=== PATIENT | male | born 1935 | race Caucasian/White ===

== ENCOUNTER 2021-02-25 03:30 | Emergency (ER) | payer MEDICARE ==
--- NOTE | 2021-02-25 04:33 | EDM.PDOCBH ---
ED HPI GENERAL MEDICAL PROBLEM - General Chief Complaint: Behavioral/Psych Stated Complaint: HALLUCINATIONS Time Seen by Provider: 02/25/21 03:40 Source of Information: Reports: Patient, EMS History Limitations: Reports: No Limitations - History of Present Illness INITIAL COMMENTS - FREE TEXT/NARRATIVE: 85-year-old male who called [phone] because he saw people in his yard m essing with his car, and messing with his neighbors boat. Police arrived and nothing was happening, he was hallucinating. He now realizes that it was not happening but it "seems so real". He is very cooperative, stable, has no complaints of headache but is having some visual disturbances like "ants on the floor and lines moving on the wall". He recently restarted taking Wellbutrin for depression and trying to quit smoking, although he claims he will "never quit smoking". He does not feel it is helping the depression, he is not suicidal. His plan is to go to [place] next week. Onset: Unknown/Unsure Duration: Week(s): (He has been having some hallucinations for the past couple of weeks) Lower Back Pain Score (Numeric/FACES): 7 - Related Data Allergies Allergy/AdvReac Type Severity Reaction Status Date / Time codeine Allergy Unknown Rash Verified 02/25/21 03:38 Home Meds: Home Meds Tamsulosin [Tamsulosin 24 Hr] 0.4 mg PO DAILY 10/21/13 [History] Tiotropium [Spiriva HandiHaler] 1 puff IH DAILY 10/21/13 [History] atorvaSTATin [Lipitor] 80 mg PO BEDTIME 10/21/13 [History] Metoprolol Succinate 50 mg PO DAILY 02/25/21 [History] Omeprazole 40 mg PO DAILY 02/25/21 [History] Warfarin Sodium [Jantoven] 5 mg PO DAILY 02/25/21 [History] buPROPion [Wellbutrin] 75 mg PO BEDTIME 02/25/21 [History] Past Medical History Cardiovascular History: Reports: High Cholesterol Respiratory History: Reports: COPD Musculoskeletal History: Reports: Back Pain, Chronic, Fracture Psychiatric History: Reports: Depression, Suicidal Ideation - Infectious Disease History Infectious Disease History: Reports: Chicken Pox - Past Surgical History Musculoskeletal Surgical History: Reports: Arthroscopic Procedure Social & Family History - Tobacco Use Tobacco Use Status *Q: Current Every Day Tobacco User Years of Tobacco use: 47 Packs/Tins Daily: 1 - Caffeine Use Caffeine Use: Reports: Coffee, Energy Drinks, Soda, Tea - Alcohol Use Days Per Week of Alcohol Use: 7 Number of Drinks Per Day: 2 Total Drinks Per Week: 14 - Recreational Drug Use Recreational Drug Use: No ED ROS GENERAL - Review of Systems Review Of Systems: See Below Constitutional: Denies: Fever, Chills HEENT: Denies: Vision Change (No visual changes but is having visual hallucinations) Respiratory: Denies: Shortness of Breath Cardiovascular: Denies: Chest Pain GI/Abdominal: Denies: Abdominal Pain, Nausea, Vomiting Musculoskeletal: Reports: Back Pain (Being treated for compression fracture in his back) Skin: Reports: No Symptoms Neurological: Reports: Paresthesia (Occasional stinging sensation and paresthesias down the left leg, none currently) Psychiatric: Reports: Confusion, Hallucinations, Mood Lability (Depression). Denies: Homicidal Ideation, Suicidal Ideation ED EXAM, BEHAVIORAL HEALTH - Physical Exam Exam: See Below Exam Limited By: No Limitations General Appearance: Alert, No Apparent Distress Eye Exam: Bilateral Eye: Normal Inspection Head: Atraumatic Neck: No: Carotid Bruit Respiratory/Chest: No Respiratory Distress, Lungs Clear Cardiovascular: Regular Rate, Rhythm Extremities: Normal Inspection. No: Pedal Edema Neurological: Alert, Normal Mood/Affect, No Motor/Sensory Deficits Psychiatric: Alert, Normal Affect Skin Exam: Warm, Dry COURSE, BEHAVIORAL HEALTH COMP - Course Vital Signs: Last Vital Signs Temp 98.2 F 02/25/21 03:31 Pulse 89 02/25/21 03:31 Resp 14 02/25/21 03:31 BP 104/74 02/25/21 03:31 Pulse Ox 92 L 02/25/21 03:31 Orders, Labs, Meds: Laboratory Tests 02/25/21 02/25/21 02/25/21 Range/Units 03:56 03:56 03:56 WBC 7.1 (4.5-11.0) K/uL RBC 4.39 (4.30-5.90) M/uL Hgb 14.4 (12.0-15.0) g/dL Hct 42.2 (40.0-54.0) % MCV 96 (80-98) fL MCH 33 H (27-31) pg MCHC 34 (32-36) % Plt Count 310 (150-400) K/uL Neut % (Auto) 61.3 (36-66) % Lymph % (Auto) 24.5 (24-44) % [place] % (Auto) 11.3 H (2-6) % Eos % (Auto) 2.3 (2-4) % Baso % (Auto) 0.6 (0-1) % Sodium 140 (140-148) mmol/L Potassium 4.2 (3.6-5.2) mmol/L Chloride 103 (100-108) mmol/L Carbon Dioxide 28 (21-32) mmol/L Anion Gap 9.4 (5.0-14.0) mmol/L BUN 18 (7-18) mg/dL Creatinine 1.4 H (0.8-1.3) mg/dL Est Cr Clr Drug Dosing 41.28 mL/min Estimated GFR (MDRD) 48 L (>60) Glucose 104 (74-106) mg/dL Calcium 9.0 (8.5-10.1) mg/dL Total Bilirubin 0.7 (0.2-1.0) mg/dL AST 27 (15-37) U/L ALT 34 (12-78) U/L Alkaline Phosphatase 134 H (46-116) U/L Total Protein 7.2 (6.4-8.2) g/dL Albumin 4.1 (3.4-5.0) g/dL Globulin 3.1 (2.3-3.5) g/dL Albumin/Globulin Ratio 1.3 (1.2-2.2) TSH, Ultra Sensitive 3.701 (0.358-3.740) uIU/mL Re-Assessment/Re-Exam: CBC, CMP and TSH were drawn as well as a head CT ordered. Patient was cooperative and rested quietly while in the emergency room. Remained oriented and nondelusional. Labs were reassuring including a normal TSH. Electrolytes also normal. CT of the head with the following results IMPRESSION: 1. No intracranial bleed or mass effect. 2. Diffuse cerebral atrophy. No reason for acute hospitalization, I advised the patient to stop his Wellbutrin and discuss another source of medication with his primary provider for his depression. Departure - Departure Time of Disposition: 07:05 Disposition: Home, Self-Care 01 Clinical Impression: Hallucinations Depression Qualifiers: Depression Type: major depressive disorder Major depression recurrence: recurrent Active/Remission status: currently active Major depression episode severity: moderate Qualified Code(s): F33.1 - Major depressive disorder, recurrent, moderate - Discharge Information Instructions: Managing Depression, Adult Referrals: PCP,None [Primary Care Provider] - Forms: ED Department Discharge Care Plan Goals: Consider stopping your Wellbutrin and discussing another form of treatment for your mood with your primary provider. Return to the emergency room if you beco me suicidal or develop other concerns. Sepsis Event Note (ED) - Evaluation Sepsis Screening Result: No Definite Risk
--- NOTE | 2021-02-25 05:11 | CRLCT ---
For Patients: As a result of the Century Cures Act, medical imaging exams and procedure reports are released immediately into your electronic medical record. You may view this report before your referring provider. If you have questions, please contact your health care provider. INDICATION: Hallucinations TECHNIQUE: CT head without contrast. COMPARISON: None. FINDINGS: CSF spaces: Within normal limits for age. Brain parenchyma: Diffuse cerebral atrophy. Solomon-white differentiation is preserved. No intracranial bleed or mass effect. Skull base and calvarium: Mucosal thickening paranasal sinuses. Atherosclerosis. The visualized orbits are grossly unremarkable. No skull fractures. IMPRESSION: 1. No intracranial bleed or mass effect. 2. Diffuse cerebral atrophy. Please note that all CT scans at this facility use dose modulation, iterative reconstruction, and/or weight-based dosing when appropriate to reduce radiation dose to as low as reasonably achievable. Dictated by Guicho Christine MD @ 02/25/2021 5:11:17 AM (Electronically Signed)
== END 2021-02-25 07:05 | disposition home or self-care (01) ==
LOC: JP.ED 03:30
DX: F33.1 Major depressive disorder, recurrent, moderate (principal); R44.9 Unspecified symptoms and signs involving general sensations and perceptions; E78.00 Pure hypercholesterolemia, unspecified; J44.9 Chronic obstructive pulmonary disease, unspecified; Z72.0 Tobacco use; Z88.5 Allergy status to narcotic agent
CPT/HCPCS: 36415; 70450; 80053; 84443; 85025; 99285-25